=== PATIENT | male | born 1995 | race Caucasian/White ===

== ENCOUNTER 2025-01-12 09:57 | Emergency (ER) | payer OTHER ==
[~2025-01-12] VITALS: Ht 182.9 cm; Wt 82.4 kg
[2025-01-12 10:06] VITALS: BP 148/95; PULSE 61; TEMP 97.4; O2SAT 100
--- NOTE | 2025-01-12 10:38 | RADIOLOGY REPORT ---
EXAM: DI LUMBAR SPINE LIMITED HISTORY: back pain COMPARISON: None TECHNIQUE: AP and lateral views of the lumbar spine and spot lateral of the lumbosacral junction were performed. FINDINGS: No fractures are identified about the lumbar spine. There is slight retrolisthesis L5 on S1. No significant degenerative changes. IMPRESSION: No fracture or significant degenerative changes of the lumbar spine.
[2025-01-12] MEDS ORDERED: CYCL-394 PO (10:48)
--- NOTE | 2025-01-12 10:49 | Physician Documentation ---
History of Present Illness ~ Chief Complaint: Back Pain Stated Complaint: BACK PAIN Time Seen by MD: 10:39 HPI 29-year-old male presents to the ED with a complaint of recurrent lumbar pain. States approximately a month ago he injured his back in the gym. Seen by his doctor in his pain ultimately went away. He has not re-injured or had any trauma all over his pain has returned. He denies any numbness tingling incontinence or fevers Day of Onset: Jan 12, 2025 Medication Reconciliation Allergies: Coded Allergies: No Known Allergies (Unverified , 01/12/25) Scheduled Cyclobenzaprine HCl (Cyclobenzaprine HCl), 1 TAB PO Q8H Review of Systems All Other Systems at this time: Reviewed and Negative ROS As stated above in the HPI, otherwise all systems are reviewed and negative. Physical Exam Physical Exam Vital Signs: Temperature: 97.4, Source: Temporal, Heart Rate: 61, Respiratory Rate: 18, BP: 148/95, Pulse Oximetry: 100, Weight: 82.400 Physical Exam General: Alert, no apparent distress. HEENT: PERRL, EOMI, no injection, moist mucous membranes. Back: Tender to lumbosacral area via palpation Extremities: Normal range of motion, no deformity. Neurologic: Oriented x4. Psychiatric: Normal mood and affect. Skin: Normal color, warm and dry. No edema, no ecchymosis. Progress Results/Orders Results/Orders Orders - ANGEL ARIAS NP Lumbar Spine Limited (01/12/25 10:25) Completed Orders - ANGEL ARIAS SHANK TURNER Lumbar Spine Limited (01/12/25 10:25) Ketorolac Trometh 30mg/Ml Vial (Toradol (01/12/25 10:45) Medications Received in ER Medications (Trade) Dose Ordered Sig/Abimael Route PRN Reason Start Time Stop Time Status Last Admin Dose Admin (Toradol inj. 30mg/ml) 30 mg ONCE ONCE IM 01/12/25 10:45 01/12/25 10:46 DC 01/12/25 11:06 30 MG Vital Signs 01/12/25 01/12/25 10:06 11:06 Temp 97.4 Pulse 61 Resp 18 18 B/P (MAP) 148/95 Pulse Ox 100 Medical Decision Making Additional info obtained from: other Findings This patient does not meet any emergent criteria which was suggested that he needs a MRI in the emergency room. He does present with symptoms that are suspicious for lumbar strain. Recommending outpatient therapy and evaluation Differential Dx:Considerations: Fracture, Musculoskeletal pain, Strain Departure Disposition: HOME / SELF CARE / HOMELESS Impression: Primary Impression: Strain of lumbar region Condition: Stable Discharge Instructions: Acute Back Pain, Adult Additional Instructions: I am recommending that she follow up with your primary care doctor and request an MRI and a referral to physical therapy if your symptoms persist Referrals: NO PRIMARY CARE PROVIDER (PCP) Prescriptions Cyclobenzaprine HCl (Cyclobenzaprine HCl) 10 Mg Tablet 1 TAB PO Q8H for muscle spasms for 10 Days, #30 TAB Prov: ANGEL ARIAS NP 01/12/25 Education Educated: Patient Educated regarding: diagnosis Signature Scribe Signature: v Attestation: Scribed for Angel Arias Energy Auditor by Angel Keith NP . 01/12/25 10:48 ANGEL ARIAS NP Jan 12, 2025 10:49
[2025-01-12 11:06] VITALS: RESP 18
[2025-01-12] MEDS: ketorolac trometh 30MG/ML vial 30 MG/ML VIAL IM ONE (11:06)
[2025-01-14] MEDS ORDERED: NAPR-56 PO (09:19)
[2025-01-14] MEDS ORDERED: HYDR-3965 PO (09:35)
== END 2025-01-12 11:10 | disposition home or self-care (01) ==
LOC: ER 09:59
DX: S39.012A Strain of muscle, fascia and tendon of lower back, initial encounter (principal); Z79.899 Other long term (current) drug therapy; X58.XXXA Exposure to other specified factors, initial encounter; Y93.89 Activity, other specified; Y92.89 Other specified places as the place of occurrence of the external cause; Y99.8 Other external cause status
CPT/HCPCS: 72100; 96372; 99283; J1885